=== PATIENT | female | born 1990 | race Two or more races ===

== ENCOUNTER 2019-01-28 19:31 | Emergency (ER) | payer SELFPAY ==
[~2019-01-28] VITALS: Ht 154.9 cm; Wt 77.1 kg
--- NOTE | 2019-01-28 19:44 | NUR ---
ED Nurse Note: Walk-in patient with complaint of left lower extremity injury due to falling down stairs, Patient also reports pain at the right hip area but is mostly concerned about the left fot to johnson. Will continue to monitor and service orders. Patient reports history of graves disease.
--- NOTE | 2019-01-28 19:50 | NUR ---
ED Nurse Note: ER provider at bedside.
[2019-01-28] MEDS ORDERED: Ketorolac 30mg Inj IM ONE (20:00)
--- NOTE | 2019-01-28 20:13 | NUR ---
ED Nurse Note: Patient currently undergoing x ray of affected area.
[2019-01-28] MEDS ORDERED: IBU800 MG PO (20:33)
--- NOTE | 2019-01-28 20:33 | Emergency Room Report ---
History of Present Illness General Chief Complaint: Lower Extremity Injury Source: Patient Present Illness HPI 28-year-old female with history of hyperthyroidism currently on methimazole here complaining of pain in the left foot and left lower extremity after a fall that occurred today. Patient is rating the pain 10 out of 10 without radiation denies any tingling and numbness. Denies head injury and loss of consciousness. Denies chest pain, shortness of breath, palpitation, and other associated symptoms. Has not taken medication for pain yet and has not iced or done any other alleviating factors. Minimal ecchymosis noted in the left foot. Also a very minor abrasion noted on the foot patient is up-to-date with her tetanus shot. Allergies: Coded Allergies: No Known Allergies (Unverified , 01/28/19) Patient History Past Medical History: see triage record Past Surgical History: unable to obtain Pertinent Family History: none Last Menstrual Period: 2 month ago Now: No Immunizations: UTD Reviewed Nursing Documentation: PMH: Agreed; PSxH: Agreed Review of Systems All Other Systems: negative except mentioned in HPI Physical Exam Vital Signs Date Time Temp Pulse Resp B/P (MAP) Pulse Ox O2 Delivery O2 Flow Rate FiO2 01/28/19 19:39 98.2 81 18 133/95 (108) 99 Room Air Sp02 EP Interpretation: reviewed, normal General Appearance: no apparent distress, alert, GCS 15, non-toxic Head: normocephalic, atraumatic Eyes: bilateral eye normal inspection, bilateral eye PERRL ENT: hearing grossly normal, normal pharynx, no angioedema, normal voice Neck: full range of motion, supple/symm/no masses Respiratory: chest non-tender, lungs clear, normal breath sounds, no wheezing, speaking full sentences Cardiovascular #1: normal inspection, regular rate, rhythm, no edema, no murmur , normal capillary refill Cardiovascular #2: 2+ dorsalis pedis (R), 2+ dorsalis pedis (L) Gastrointestinal: normal bowel sounds, non tender, soft, non-distended, no guarding, no rebound Rectal: deferred Genitourinary: no CVA tenderness Musculoskeletal: back normal, normal range of motion, non-tender, no calf tenderness, swelling - Left foot Neurologic: alert, oriented x3, responsive, motor strength/tone normal, sensory intact, speech normal Psychiatric: normal inspection, judgement/insight normal Skin: no rash Lymphatic: normal inspection, no adenopathy Procedures Splinting Splinting : Consent: Verbal Location: Left foot and lower extremity Splint: poserior short Pre-Proc Neuro Vasc Exam: normal Post-Proc Neuro Vasc Exam: normal Patient Tolerated: Well Complications: None Medical Decision Making PA Attestation All my diagnosis and treatment plans were reviewed ad discussed with my supervising physician Dr. Marie Diagnostic Impression: Primary Impression: Foot sprain Additional Impression: Lower extremity sprain ER Course 28-year-old female with history of hyperthyroidism currently on methimazole here complaining of pain in the left foot and left lower extremity after a fall that occurred today. Patient is rating the pain 10 out of 10 without radiation denies any tingling and numbness. Denies head injury and loss of consciousness. Denies chest pain, shortness of breath, palpitation, and other associated symptoms. Has not taken medication for pain yet and has not iced or done any other alleviating factors. Minimal ecchymosis noted in the left foot. Also a very minor abrasion noted on the foot patient is up-to-date with her tetanus shot. Ddx considered but are not limited to: foot fracture, foot sprain, foot contusion, foot strain Vital signs: are WNL, pt. is afebrile H&PE are most consistent with: Foot sprain and lower extremities pain ORDERS: foot Xray , tib-fib x-ray, ibuprofen ED INTERVENTIONS: Symptomatic immobilization via posterior splinting and crutches DISCHARGE: At this time pt. is stable for d/c to home. Will provide printed patient care instructions, and any necessary prescriptions. Care plan and follow up instructions have been discussed with the patient prior to discharge. Patient to follow-up with her primary care provider and marketing programs specialist if worsening symptoms return to the emergency room Other X-Ray Diagnostic Results Other X-Ray Diagnostic Results #1: X-Ray ordered: Left foot # of Views/Limited Vs Complete: 3 View Indication: Pain EP Interpretation: Yes ETELVINA Xray: Interpretation reviewed, by supervising MD, and agrees with findings. Interpretation: no dislocation, no soft tissue swelling Impression: No acute disease Electronically Signed by: Leland Nguyen PA-C Other X-Ray Diagnostic Results #2: X-Ray ordered: Left tib-fib # of Views/Limited Vs Complete: 2 View Indication: Pain EP Interpretation: Yes ETELVINA Xray: Interpretation reviewed, by supervising MD, and agrees with findings. Interpretation: no soft tissue swelling, no fractures Impression: No acute disease Electronically Signed by: Leland Nguyen PA-C Last Vital Signs Date Time Temp Pulse Resp B/P (MAP) Pulse Ox O2 Delivery O2 Flow Rate FiO2 01/28/19 19:39 98.2 81 18 133/95 (108) 99 Room Air Disposition: HOME, SELF-CARE Condition: Stable Scripts Ibuprofen (Ibu) 800 Mg Tablet 800 MG PO TID, #30 TAB Prov: Leland Mendoza 01/28/19 Referrals: NON PHYSICIAN (PCP) Patient Instructions: Foot Sprain, Lynne Splints [facility] Additional Instructions: Take medication as directed follow-up with your primary care provider if worsening symptoms return to emergency room Leland Mendoza Jan 28, 2019 20:33
[2019-01-28 20:45] VITALS: BP 133/95
--- NOTE | 2019-01-28 20:45 | NUR ---
ED Nurse Note: Patient cleared for discharge, verbalized understanding of discharge instructions and crutch instructions. Patient will be taken home by her sister. Patient departed with all belongings.
--- NOTE | 2019-01-29 13:18 | Diagnostic Imaging Report ---
Indication: Foot pain Comparison: None Findings: 3 views of the left foot were obtained. No acute fractures, malalignment, erosions or periostitis are identified. Soft tissues are unremarkable. Impression: No acute findings
--- NOTE | 2019-01-29 13:18 | Diagnostic Imaging Report ---
Indication: Left leg pain Comparison: None Findings: Two views of the left tibia and fibula were obtained. No acute fracture, malalignment, or periosteal reaction are identified. There is pretibial soft tissue swelling. Impression: No acute injury. Soft tissue swelling
== END 2019-01-28 20:45 | disposition home or self-care (01) ==
LOC: EMR 20:16
DX: S93.602A Unspecified sprain of left foot, initial encounter (principal); W19.XXXA Unspecified fall, initial encounter; Y92.9 Unspecified place or not applicable
CPT/HCPCS: 29515; 73590; 73630; 96372; 99283; J1885